=== PATIENT | male | born 1960 | race Caucasian/White ===

== ENCOUNTER 2018-02-08 15:24 | Outpatient (REF) | payer OTHER, SELFPAY ==
[2018-02-08 21:01] LABS: Abs Immature Grans 0.02 k/cumm (0.0-0.09); Absolute Basophil Count 0.02 k/cumm (0.0-0.2); Absolute Eosinophil Count 0.09 k/cumm (0.0-0.7); Absolute Lymphocyte Count 1.94 k/cumm (1.2-3.4); Absolute Monocyte Count 0.47 k/cumm (0.11-0.7); Absolute Neutrophil Count 7.21 k/cumm (1.2-6.7); Basophils % 0.2; Eosinophils % 0.9; HCT 38.2 % (40.0-50.0); HGB 12.3 g/dL (13.5-17.5); Immature Grans % 0.2; Lymphocytes % 19.9; Mean Corp. HGB Concentration 32.2 g/dL (32.0-36.0); Mean Corpuscular Hemoglobin 28.6 pg (27.0-33.0); Mean Corpuscular Volume 88.8 fL (80-95); Mean Platelet Volume 11.3 fL (8.0-11.0); Monocytes % 4.8; Platelet Count 226 x1000/uL (130-400); RBC Distribution Width 16.3 % (11.8-14.1); White Blood Cell Count 9.75 k/cumm (4.4-10.8)
[2018-02-08 21:03] LABS: ALT 43 U/L (12-78); AST 34 U/L (15-37); Albumin 3.8 g/dL (3.4-5.0); BUN 18 mg/dL (7-18); CREATININE 1.34 mg/dL (0.70-1.30); Calcium 9.2 mg/dL (8.5-10.1); Chloride 102 mmol/L (98-107); Estimated GFR 54.56 (mL/min/1.73m2); Glucose 148 mg/dL (70-100); Potassium 5.1 mmol/L (3.5-5.1); Sodium 139 mmol/L (136-145)
[2018-02-08 21:10] LABS: COMMENT (LAB VIEW ONLY) 166.85 mg/dL
[2018-02-08 22:16] LABS: Alkaline Phosphatase 121 U/L (46-116); Bilirubin, Total 0.4 mg/dL (0.2-1.0); Cholesterol 194 mg/dL (50-200); HDL Cholesterol 54 mg/dL (40-60); LDL CHOLESTEROL 123 mg/dL (<100); TSH 3.45 uIU/mL (0.358-3.74); Total Protein 7.9 g/dL (6.4-8.2); Triglyceride 127 mg/dL (30-150)
== END 2018-02-08 15:44 ==
LOC: NCHCN 15:24
PROVIDERS: PCP Internal Medicine; Visit Provider Internal Medicine
DX: E03.9 Hypothyroidism, unspecified (principal); E11.9 Type 2 diabetes mellitus without complications; I10 Essential (primary) hypertension; E66.9 Obesity, unspecified
CPT/HCPCS: 80053; 80061; 83721; 82043; 82570; 84443; 85025

== ENCOUNTER 2018-08-30 16:35 | Outpatient (REF) | payer OTHER, MEDICARE, SELFPAY ==
[2018-08-30 20:38] LABS: Abs Immature Grans 0.02 k/cumm (0.0-0.09); Absolute Basophil Count 0.02 k/cumm (0.0-0.2); Absolute Eosinophil Count 0.11 k/cumm (0.0-0.7); Absolute Lymphocyte Count 1.98 k/cumm (1.2-3.4); Absolute Monocyte Count 0.61 k/cumm (0.11-0.7); Absolute Neutrophil Count 4.28 k/cumm (1.2-6.7); Basophils % 0.3; Eosinophils % 1.6; HGB 11.4 g/dL (13.5-17.5); Immature Grans % 0.3; Lymphocytes % 28.2; Mean Corp. HGB Concentration 31.7 g/dL (32.0-36.0); Mean Corpuscular Volume 85.3 fL (80-95); Mean Platelet Volume 10.9 fL (8.0-11.0); Monocytes % 8.7; Neutrophils % 60.9; Platelet Count 236 x1000/uL (130-400); RBC 4.22 m/cumm (4.50-6.00); RBC Distribution Width 16.9 % (11.8-14.1); White Blood Cell Count 7.02 k/cumm (4.4-10.8)
[2018-08-30 21:00] LABS: ALT 48 U/L (12-78); AST 36 U/L (15-37); Albumin 3.8 g/dL (3.4-5.0); Alkaline Phosphatase 127 U/L (46-116); BUN 16 mg/dL (7-18); Bilirubin, Total 0.3 mg/dL (0.2-1.0); CREATININE 1.16 mg/dL (0.70-1.30); Calcium 9.4 mg/dL (8.5-10.1); Chloride 100 mmol/L (98-107); Glucose 110 mg/dL (70-100); Lipase 129 U/L (73-393); NT-proBNP 33 pg/mL; Potassium 4.9 mmol/L (3.5-5.1); Sodium 139 mmol/L (136-145)
== END 2018-08-30 16:55 ==
LOC: NCHCN 16:35
PROVIDERS: PCP Internal Medicine; Visit Provider Internal Medicine
DX: R07.89 Other chest pain (principal); I10 Essential (primary) hypertension; E11.49 Type 2 diabetes mellitus with other diabetic neurological complication
CPT/HCPCS: 80053; 83690; 83880; 85025

== ENCOUNTER 2018-09-05 01:05 | Outpatient (CLI) | payer OTHER, MEDICARE, SELFPAY ==
--- NOTE | 2018-09-05 11:00 | DI.RAD_ITS ---
SYMPTOM/DIAGNOSIS: R06.09, EXERTIONAL SHORTNESS OF BREATH PA AND LATERAL CHEST: The lungs are free of infiltrates. There is no pleural effusion. The cardiovascular structures appear intact. SUMMARY: No evidence of acute cardiopulmonary disease,
== END 2018-09-05 01:25 ==
PROVIDERS: PCP Internal Medicine; Visit Provider Internal Medicine
DX: R06.09 Other forms of dyspnea (principal)
CPT/HCPCS: 71046

== ENCOUNTER 2018-11-11 02:12 | Outpatient (CLI) | payer OTHER, MEDICARE, SELFPAY ==
--- NOTE | 2018-11-11 | PFT_ITS ---
PULMONARY FUNCTION TEST REPORT Patient - Melo Waller DATE OF SERVICE November 11, 2018 REQUESTING PROVIDER Nella Goel M.D. INTERPRETATION OF STUDY Spirometry shows no evidence of obstructive airways disease. No bronchodilator response. LUNG VOLUMES - Lung volumes, the patient unable to carry out plethysmography maneuver due to obesity. There was severely decreased slow vital capacity and extremely low ERV. DIFFUSION CAPACITY- Mildly reduced, which is normal when corrected to alveolar volume. AIRWAY RESISTANCE - Not measured. IMPRESSION No evidence of obstructive airways disease. There is a suggestion toward restrictive pattern, however, this cannot be confirmed without total lung capacity measurement, likely at least partially the restrictive pattern is related to chest wall restriction from morbidity obesity. Clinical correlation recommended. Marichuy French M.D. ANDREA/ T- 11/18/2018
[2018-11-11] MEDS: Inhaler, Assist Device 1 EACH MC (14:26)
[2018-11-11] MEDS: Albuterol HFA 18 GM 200 PUFF INH IH (14:27)
== END 2018-11-11 02:32 ==
PROVIDERS: PCP Internal Medicine; Visit Provider Internal Medicine
DX: R06.02 Shortness of breath (principal); Z87.891 Personal history of nicotine dependence; Z77.090 Contact with and (suspected) exposure to asbestos
CPT/HCPCS: 94060; 94729

== ENCOUNTER 2019-02-27 15:37 | Outpatient (REF) | payer OTHER, MEDICARE, SELFPAY ==
[2019-02-27 22:25] LABS: Abs Immature Grans 0.04 k/cumm (0.0-0.09); Absolute Basophil Count 0.01 k/cumm (0.0-0.2); Absolute Eosinophil Count 0.19 k/cumm (0.0-0.7); Absolute Lymphocyte Count 1.42 k/cumm (1.2-3.4); Absolute Monocyte Count 0.56 k/cumm (0.11-0.7); Basophils % 0.1; Eosinophils % 2.3; HCT 33.6 % (40.0-50.0); HGB 11.2 g/dL (13.5-17.5); Immature Grans % 0.5; Lymphocytes % 17.1; Mean Corp. HGB Concentration 33.3 g/dL (32.0-36.0); Mean Corpuscular Hemoglobin 28.3 pg (27.0-33.0); Mean Corpuscular Volume 84.8 fL (80-95); Monocytes % 6.7; Neutrophils % 73.3; Platelet Count 300 x1000/uL (130-400); RBC 3.96 m/cumm (4.50-6.00); RBC Distribution Width 17.2 % (11.8-14.1); White Blood Cell Count 8.32 k/cumm (4.4-10.8)
[2019-02-27 22:39] LABS: ALT 71 U/L (16-63); AST 65 U/L (15-37); Albumin 3.5 g/dL (3.4-5.0); Alkaline Phosphatase 112 U/L (46-116); Anion Gap 9.2 mmol/L (3-11); BUN 18 mg/dL (7-18); Bilirubin, Total 0.3 mg/dL (0.2-1.0); CO2 25.8 mmol/L (21.0-32.0); CREATININE 1.03 mg/dL (0.70-1.30); Calcium 8.8 mg/dL (8.5-10.1); Chloride 101 mmol/L (98-107); Glucose 176 mg/dL (74-106); Lipase 118 U/L (73-393); Sodium 136 mmol/L (136-145); TSH 4.72 uIU/mL (0.36-3.74); Total Protein 7.4 g/dL (6.4-8.2)
== END 2019-02-27 15:57 ==
LOC: NCHCN 15:37
PROVIDERS: PCP Internal Medicine; Visit Provider Internal Medicine
DX: E11.49 Type 2 diabetes mellitus with other diabetic neurological complication (principal); R06.09 Other forms of dyspnea; E03.9 Hypothyroidism, unspecified; E66.9 Obesity, unspecified
CPT/HCPCS: 80053; 83690; 84443; 85025

== ENCOUNTER 2019-10-20 12:57 | Outpatient (REF) | payer OTHER, MEDICARE, SELFPAY ==
[2019-10-20 22:28] LABS: Anion Gap 7.2 mmol/L (3-11); BUN 19 mg/dL (7-18); CO2 29.8 mmol/L (21.0-32.0); CREATININE 1.12 mg/dL (0.70-1.30); Calcium 9.1 mg/dL (8.5-10.1); Chloride 102 mmol/L (98-107); Glucose 249 mg/dL (74-106); Potassium 5.2 mmol/L (3.5-5.1); Sodium 139 mmol/L (136-145)
== END 2019-10-20 13:17 ==
LOC: NCHCN 12:57
PROVIDERS: PCP Internal Medicine; Visit Provider Internal Medicine
DX: R60.0 Localized edema (principal)
CPT/HCPCS: 80048

== ENCOUNTER 2019-11-20 14:30 | Outpatient (REF) | payer OTHER, MEDICARE, SELFPAY ==
[2019-11-20 14:40] LABS: Anion Gap 4.4 mmol/L (3-11); BUN 25 mg/dL (7-18); CO2 29.6 mmol/L (21.0-32.0); CREATININE 1.17 mg/dL (0.70-1.30); Calcium 8.7 mg/dL (8.5-10.1); Chloride 106 mmol/L (98-107); Glucose 141 mg/dL (74-106); Potassium 4.3 mmol/L (3.5-5.1); Sodium 140 mmol/L (136-145); TSH 6.13 uIU/mL (0.36-3.74)
== END 2019-11-20 14:50 ==
LOC: NCHCN 14:30
PROVIDERS: PCP Internal Medicine; Visit Provider Internal Medicine
DX: E11.21 Type 2 diabetes mellitus with diabetic nephropathy (principal); E03.9 Hypothyroidism, unspecified
CPT/HCPCS: 80048; 84443

== ENCOUNTER 2020-01-26 20:20 | Outpatient (REF) | payer OTHER, MEDICARE, SELFPAY ==
[2020-01-26 21:46] LABS: Abs Immature Grans 0.02 10^3/uL (0.0-0.06); Absolute Basophil Count 0.02 10^3/uL (0.0-0.2); Absolute Eosinophil Count 0.11 10^3/uL (0.0-0.7); Absolute Lymphocyte Count 2.14 10^3/uL (1.2-3.4); Absolute Monocyte Count 0.59 10^3/uL (0.1-0.8); Absolute Neutrophil Count 4.02 10^3/uL (1.2-6.7); Basophils % 0.3; Eosinophils % 1.6; HCT 32.8 % (40.0-50.0); HGB 10.6 g/dL (13.5-17.5); Immature Grans % 0.3; MCH 28.8 pg (27.0-33.0); MCHC 32.3 % (32.0-36.0); MCV 89.1 fL (80-95); MPV 12.4 fL (8.0-11.0); Monocytes % 8.6; Neutrophils % 58.2; Nucleated RBC 0 %; Platelet Count 188 10^3/uL (130-400); RBC 3.68 10^6/uL (4.36-5.78); RDW 15.9 % (11.8-14.1)
[2020-01-26 22:21] LABS: Iron 75 ug/dL (65-175); Total Iron Binding Capacity 347 ug/dL (250-450); Transferrin Sat 22 % (20-55)
[2020-01-26 22:24] LABS: Hemoglobin A1C 7.1 % (<5.7)
[2020-01-26 22:45] LABS: TSH 4.55 uIU/mL (0.36-3.74); Vitamin B12 898 pg/mL (193-986)
[2020-01-27 10:56] LABS: Ferritin 22 ng/mL (26-388)
== END 2020-01-26 20:40 ==
LOC: NCHCN 20:20
PROVIDERS: PCP Internal Medicine; Visit Provider Internal Medicine
DX: D64.9 Anemia, unspecified (principal); E11.49 Type 2 diabetes mellitus with other diabetic neurological complication
CPT/HCPCS: 82607; 82728; 83036; 83540; 83550; 84443; 85025

== ENCOUNTER 2020-04-12 16:37 | Outpatient (REF) | payer OTHER, MEDICARE, SELFPAY ==
[2020-04-13 13:29] LABS: COVID-19 RT-PCR UVMMC Result Negative (Negative)
== END 2020-04-12 16:57 ==
LOC: LBN 16:37
PROVIDERS: PCP Internal Medicine; Visit Provider Internal Medicine
DX: Z20.822 Contact with and (suspected) exposure to COVID-19 (principal)
CPT/HCPCS: U0003

== ENCOUNTER 2020-04-20 15:28 | Outpatient (REF) | payer OTHER, MEDICARE, SELFPAY ==
[2020-04-20 21:48] LABS: Abs Immature Grans 0.03 10^3/uL (0.0-0.06); Absolute Basophil Count 0.02 10^3/uL (0.0-0.2); Absolute Eosinophil Count 0.07 10^3/uL (0.0-0.7); Absolute Lymphocyte Count 1.64 10^3/uL (1.2-3.4); Absolute Monocyte Count 0.55 10^3/uL (0.1-0.8); Absolute Neutrophil Count 6.61 10^3/uL (1.2-6.7); Basophils % 0.2; Eosinophils % 0.8; HCT 39.1 % (40.0-50.0); HGB 12.9 g/dL (13.5-17.5); Immature Grans % 0.3; Lymphocytes % 18.4; MCH 29.4 pg (27.0-33.0); MCV 89.1 fL (80-95); MPV 12.5 fL (8.0-11.0); Monocytes % 6.2; Neutrophils % 74.1; Nucleated RBC 0 %; Platelet Count 183 10^3/uL (130-400); RBC 4.39 10^6/uL (4.36-5.78); RDW-SD 49.6 fL; WBC 8.92 10^3/uL (4.4-10.8)
[2020-04-20 22:51] LABS: ALT 67 U/L (16-63); AST 53 U/L (15-37); Alkaline Phosphatase 121 U/L (46-116); Anion Gap 7.6 mmol/L (3-11); BUN 41 mg/dL (7-18); Bilirubin, Total 0.4 mg/dL (0.2-1.0); CO2 25.4 mmol/L (21.0-32.0); CREATININE 1.68 mg/dL (0.70-1.30); Calcium 9.7 mg/dL (8.5-10.1); Chloride 99 mmol/L (98-107); Estimated GFR 41.75 (mL/min/1.73m2); Glucose 178 mg/dL (74-106); Sodium 132 mmol/L (136-145); TSH 2.64 uIU/mL (0.36-3.74); Total Protein 8.1 g/dL (6.4-8.2)
[2020-04-20 22:52] LABS: Ferritin 64 ng/mL (26-388)
[2020-04-20 23:02] LABS: Potassium 6.1 mmol/L (3.5-5.1)
== END 2020-04-20 15:48 ==
LOC: NCHCN 15:28
PROVIDERS: PCP Internal Medicine; Visit Provider Nurse Practitioner Family
DX: K76.0 Fatty (change of) liver, not elsewhere classified (principal); E11.49 Type 2 diabetes mellitus with other diabetic neurological complication; K21.9 Gastro-esophageal reflux disease without esophagitis; I10 Essential (primary) hypertension
CPT/HCPCS: 80053; 82728; 84443; 85025

== ENCOUNTER 2020-04-26 11:40 | Outpatient (REF) | payer OTHER, MEDICARE, SELFPAY ==
--- OUTSIDE RECORDS SUMMARY | 2020-04-26 11:45 | XMS_ITS ---
:1960 Author Care Team Providers Name Role Phone Unavailable Primary Care Provider Unavailable Allergies Code Code System Name Reaction Severity Status Onset Bee Venom Protein ? ? Active ? (Honey Bee) 7531 RxNorm Nortriptyline ? ? Active ? Medications Name Status Start Date Stop Date ? ? ammonium lactate 12 %-12 % topical kit Active ? Not available Apply 1 kit twice a day by topical route as needed. amoxicillin 500 mg tablet Completed ? 2019 aspirin 81 mg tablet,delayed release Active ? Not available Take 1 tablet every day by oral route. BD Insulin Syringe Ultra-Fine 0.5 mL 31 Active ? Not available gauge x 5/16 BD Insulin Syringe Ultra-Fine 1 mL 31 Active ? Not available gauge x 5/16 Carafate 100 mg/mL oral suspension Active ? Not available cephalexin 500 mg capsule Active ? Not av ailable Cymbalta 20 mg capsule,delayed release Active ? Not available Take 30 mg twice a day by oral route. Stylesight G6 Sensor device Active ? Not avai lable diltiazem CD 180 mg capsule,extended Active ? Not available release 24 hr duloxetine 30 mg capsule,delayed Active ? Not available release duloxetine 60 mg capsule,delayed Active ? Not available release epinephrine 0.3 mg/0.3 mL injection, Active ? Not available auto-injector EpiPen 2-Gilberto Active ? Not available PRN esomeprazole magnesium 40 mg Active ? Not available capsule,delayed release ezetimibe 10 mg tablet Active ? Not avail able famotidine 40 mg tablet Active ? Not avai lable fluconazole 100 mg tablet Active ? Not av ailable fluconazole 150 mg tablet Active ? Not av ailable fluoxetine 10 mg capsule Active ? Not uri ilable furosemide 20 mg tablet Active ? Not avai lable gabapentin 300 mg capsule Active ? Not av ailable Humalog U-100 Insulin Active ? Not availa ble 35 in AM, 35 in PM Humalog U-100 Insulin 100 unit/mL Active ? Not available subcutaneous solution Lantus U-100 Insulin 100 unit/mL Active ? Not available subcutaneous solution Levemir U-100 Insulin Completed ? 09/05/2018 80 units BID levothyroxine 125 mcg tablet Active ? Not available levothyroxine 25 mcg tablet Active ? Not available levothyroxine 88 mcg tablet Active ? Not available lisinopril 40 mg tablet Active ? Not avai lable metformin 1,000 mg tablet Active ? Not av ailable metoclopramide 10 mg tablet Active ? Not available metoclopramide HCl Active ? Not available 10 mg QID miconazole nitrate (bulk) powder Active ? Not available Take 1 g 3 times a day by miscell. route. Narcan 4 mg/actuation nasal spray Active ? Not available Take 1 spray as needed by nasal route as needed. Nystop 100,000 unit/gram topical powder Active ? Not available ProAir HFA Completed ? 12/12/2019 2 puffs Q4-6hrs ranitidine 150 mg tablet Active ? Not uri ilable Take 2 tablets every day by oral route at bedtime. rosuvastatin 10 mg tablet Active ? Not av ailable Serevent Diskus 50 mcg/dose powder for inhalation Active ? Not available Inhale 1 puff twice a day by inhalation route. Stiolto Respimat 2.5 mcg-2.5 Completed ? mcg/actuation solution for inhalation terazosin 5 mg capsule Active ? Not avail able tolterodine 1 mg tablet Active ? Not avai lable tramadol 50 mg tablet Active ? Not availa ble triamcinolone acetonide 0.5 % topical cream Active ? Not available APPLY A THIN LAYER TO THE AFFECTED AREA(S) BY TOPICAL ROUTE 2 T IMES PER DAY Ventolin HFA 90 mcg/actuation aerosol Active ? Not available inhaler Xtampza ER 27 mg capsule sprinkle Active ? Not available Problems Name Status Onset Date Source ? Polyp of Colon Active 04/30/2018 ? Hypothyroidism Active 04/30/2018 ? Type 2 Diabetes Mellitus Active 04/30/2018 ? Obesity Active 04/30/2018 ? Tobacco User Active 04/30/2018 ? Parkinsonism Active 04/30/2018 ? Chronic Pain Active 04/30/2018 ? Hypertensive Disorder Active 04/30/2018 ? Peripheral Venous Insufficiency Active 04/30/2018 ? Gastroesophageal Reflux Disease Active 04/30/2018 ? Gastroparesis Syndrome Active 04/30/2018 ? Chronic Constipation Active 04/30/2018 ? Osteoarthritis Active 04/30/2018 ? Shoulder Pain Active 04/30/2018 ? Edema Active 04/30/2018 ? Family History of Prostate Cancer Active 04/30/2018 ? Restless Legs Active 05/09/2018 ? Sleep Paralysis Active 05/09/2018 ? Cramp in Lower Leg Associated with Rest Active 05/09/19 19 ? Dyspnea on Exertion Active 07/08/2019 ? Obstructive Sleep Apnea Syndrome Active ? ? Procedures Date Name Performed by ? 03/11/2019 US, Echocardiogram, Transthoracic, [facility] Complete, W/ Color Flow [address], [place] [address] ([place] [address]) 07/08/2019 LDCT, Chest, for Lung Cancer [facility] - Radiology Screening [address] [place], [place] [address] (Work [address]) 12/12/2019 LDCT, Chest, for Lung Cancer [facility] - Radiology Screening [address], [place] [address] (Work Place) Results Lab Results None recorded. Past Encounters 12/12/2019 Obstructive Sleep Apnea Syndrome; Dyspne a on Exertion; Ex-smoker Marichuy French MD: [address] [place] [address] Dr devora Panchal [address] [place] [phone], Ph. 07/08/2019 Obstructive Sleep Apnea Syndrome; Dyspne a on Exertion; Ex-smoker Marichuy French MD: [address] [place] [address] Dr devora Panchal [address] [place] [phone], Ph. 03/11/2019 Dyspnea on Exertion; Obstructive Sleep A pnea Syndrome Marichuy French MD: [address] [place] [address] Dr devora Panchal [address] [place] [phone], Ph. 11/21/2018 Obstructive Sleep Apnea Syndrome Felicia Salazar NP: [address] [place] [phone], Ph. Social History Tobacco Smoking Status Former Smoker Notes: quit 10 + years ago, 1-1.5ppd, started age 15 Vaccine List Vaccine Type influenza, injectable, quadrivalent 02/04/2019 pneumococcal polysaccharide PPV23 12/17/2002 12/30/2015 Tdap 04/29/2008 Plan of Care Reminders Provider Appointments None ? ? recorded. Lab None ? ? recorded. Referral None ? ? recorded. Procedures None ? ? recorded. Surgeries None ? ? recorded. Imaging None ? ? recorded. Vitals 12/12/2019 02:00PM Office 15 Height Weight BMI Blood Pressure 190.5 cm 191 kg 52.6 kg/m2 128/70 mm[Hg] 07/08/2019 08:30AM Office 30 Height 190.5 cm 03/11/2019 11:00AM New Patient 45 Height Weight BMI Blood Pressure 190.5 cm 189 kg 52.1 kg/m2 122/72 mm[Hg] 11/21/2018 01:15PM Office 30 Height Weight BMI Blood Pressure 190.5 cm 194.23 kg 53.5 kg/m2 158/80 mm[Hg] 09/05/2018 10:45AM Office 30 Height Weight BMI Blood Pressure 190.5 cm 191.42 kg 52.7 kg/m2 128/74 mm[Hg] 05/09/2018 01:00PM New Patient 45 Height Weight BMI Blood Pressure 190.5 cm 190.51 kg 52.5 kg/m2 138/82 mm[Hg]
[2020-04-26 12:37] LABS: Anion Gap 9.7 mmol/L (3-11); BUN 33 mg/dL (7-18); CO2 24.3 mmol/L (21.0-32.0); CREATININE 1.4 mg/dL (0.70-1.30); Calcium 9.6 mg/dL (8.5-10.1); Chloride 104 mmol/L (98-107); Estimated GFR 51.52 (mL/min/1.73m2); Glucose 131 mg/dL (74-106); Sodium 138 mmol/L (136-145)
== END 2020-04-26 12:00 ==
LOC: NCHCN 11:40
PROVIDERS: PCP Internal Medicine; Visit Provider Internal Medicine
DX: E11.622 Type 2 diabetes mellitus with other skin ulcer (principal); I87.312 Chronic venous hypertension (idiopathic) with ulcer of left lower extremity
CPT/HCPCS: 80048

== ENCOUNTER 2020-05-10 20:35 | Outpatient (REF) | payer OTHER, MEDICARE, SELFPAY ==
[2020-05-10 21:18] LABS: Anion Gap 11.9 mmol/L (3-11); BUN 19 mg/dL (7-18); CO2 24.1 mmol/L (21.0-32.0); CREATININE 1.2 mg/dL (0.70-1.30); Calcium 8.9 mg/dL (8.5-10.1); Chloride 101 mmol/L (98-107); Glucose 146 mg/dL (74-106); Potassium 4.5 mmol/L (3.5-5.1); Sodium 137 mmol/L (136-145)
[2020-05-12 13:26] LABS: COVID-19 RT-PCR UVMMC Result Negative (Negative)
== END 2020-05-10 20:36 | disposition home or self-care (01) ==
LOC: NCHCN 20:35
PROVIDERS: PCP Internal Medicine; Visit Provider Internal Medicine
DX: I10 Essential (primary) hypertension (principal); I87.312 Chronic venous hypertension (idiopathic) with ulcer of left lower extremity; Z20.828 Contact with and (suspected) exposure to other viral communicable diseases
CPT/HCPCS: 80048; U0003

== ENCOUNTER 2020-05-17 21:37 | Outpatient (REF) | payer OTHER, MEDICARE, SELFPAY ==
[2020-05-18 18:06] LABS: PSA, Screening 0.5 ng/mL (0.0-4.5)
== END 2020-05-17 21:38 | disposition home or self-care (01) ==
LOC: LBN 21:37
PROVIDERS: PCP Internal Medicine; Visit Provider Urology
DX: Z12.5 Encounter for screening for malignant neoplasm of prostate (principal)
CPT/HCPCS: 84153

== ENCOUNTER 2020-06-07 20:38 | Outpatient (REF) | payer OTHER, MEDICARE, SELFPAY ==
[2020-06-07 21:25] LABS: Anion Gap 11.4 mmol/L (3-11); BUN 33 mg/dL (7-18); CO2 24.6 mmol/L (21.0-32.0); CREATININE 1.2 mg/dL (0.70-1.30); Calcium 9.1 mg/dL (8.5-10.1); Calculated LDL 39 mg/dL (<100); Chloride 100 mmol/L (98-107); Cholesterol 133 mg/dL (<200); Glucose 134 mg/dL (74-106); HDL Cholesterol 83 mg/dL (40-60); Potassium 5.1 mmol/L (3.5-5.1); Sodium 136 mmol/L (136-145); Triglyceride 57 mg/dL (<150)
== END 2020-06-07 20:39 | disposition home or self-care (01) ==
LOC: LBN 20:38
PROVIDERS: PCP Internal Medicine; Visit Provider Internal Medicine
DX: I10 Essential (primary) hypertension (principal); I87.312 Chronic venous hypertension (idiopathic) with ulcer of left lower extremity; N17.9 Acute kidney failure, unspecified
CPT/HCPCS: 80048; 80061

== ENCOUNTER 2020-06-15 22:05 | Outpatient (REF) | payer OTHER, MEDICARE, SELFPAY ==
[2020-06-17 14:23] LABS: COVID-19 RT-PCR UVMMC Result Negative (Negative)
== END 2020-06-15 22:06 | disposition home or self-care (01) ==
LOC: LBN 22:05
PROVIDERS: PCP Internal Medicine; Visit Provider Anesthesiology Pain Medicine
DX: Z20.828 Contact with and (suspected) exposure to other viral communicable diseases (principal); Z01.818 Encounter for other preprocedural examination
CPT/HCPCS: U0003

== ENCOUNTER 2020-07-13 21:04 | Outpatient (REF) | payer OTHER, MEDICARE, SELFPAY ==
[2020-07-14 22:51] LABS: COVID-19 RT-PCR UVMMC Result Negative (Negative)
== END 2020-07-13 21:05 | disposition home or self-care (01) ==
LOC: LBN 21:04
PROVIDERS: PCP Internal Medicine; Visit Provider Anesthesiology Pain Medicine
DX: Z20.822 Contact with and (suspected) exposure to COVID-19 (principal); Z01.818 Encounter for other preprocedural examination
CPT/HCPCS: 87635; U0003; U0005

== ENCOUNTER 2020-07-27 13:15 | Outpatient (REF) | payer OTHER, MEDICARE, SELFPAY ==
[2020-07-28 15:16] LABS: COVID-19 RT-PCR UVMMC Result Negative (Negative)
== END 2020-07-27 13:16 | disposition home or self-care (01) ==
LOC: NCHCN 13:15
PROVIDERS: PCP Internal Medicine; Visit Provider Nurse Practitioner Family
DX: Z20.822 Contact with and (suspected) exposure to COVID-19 (principal); J02.9 Acute pharyngitis, unspecified
CPT/HCPCS: U0003

== ENCOUNTER 2020-09-23 16:36 | Outpatient (REF) | payer OTHER, MEDICARE, SELFPAY ==
[2020-09-23 21:00] LABS: Abs Immature Grans 0.05 10^3/uL (0.0-0.06); Absolute Basophil Count 0.03 10^3/uL (0.0-0.2); Absolute Eosinophil Count 0.09 10^3/uL (0.0-0.7); Absolute Lymphocyte Count 2.02 10^3/uL (1.2-3.4); Absolute Monocyte Count 0.65 10^3/uL (0.1-0.8); Absolute Neutrophil Count 8.63 10^3/uL (1.2-6.7); Basophils % 0.3; Eosinophils % 0.8; HGB 12.1 g/dL (13.5-17.5); Immature Grans % 0.4; Lymphocytes % 17.6; MCH 30.3 pg (27.0-33.0); MCHC 33.6 % (32.0-36.0); MPV 11.6 fL (8.0-11.0); Monocytes % 5.7; Neutrophils % 75.2; Nucleated RBC 0 %; Platelet Count 177 10^3/uL (130-400); RDW 14.6 % (11.8-14.1); RDW-SD 48.5 fL; WBC 11.47 10^3/uL (4.4-10.8)
[2020-09-23 21:25] LABS: ALT 34 U/L (16-63); AST 25 U/L (15-37); Albumin 3.6 g/dL (3.4-5.0); Alkaline Phosphatase 126 U/L (46-116); Anion Gap 8.8 mmol/L (3-11); BUN 27 mg/dL (7-18); Bilirubin, Total 0.4 mg/dL (0.2-1.0); CO2 25.2 mmol/L (21.0-32.0); CREATININE 1.3 mg/dL (0.70-1.30); Calcium 9.1 mg/dL (8.5-10.1); Chloride 99 mmol/L (98-107); Estimated GFR 56.12 (mL/min/1.73m2); Glucose 172 mg/dL (74-106); Potassium 4.7 mmol/L (3.5-5.1); Sodium 133 mmol/L (136-145); TSH 1.89 uIU/mL (0.36-3.74); Total Protein 7.2 g/dL (6.4-8.2)
== END 2020-09-23 16:37 | disposition home or self-care (01) ==
LOC: NCHCN 16:36
PROVIDERS: PCP Internal Medicine; Visit Provider Internal Medicine
DX: E03.9 Hypothyroidism, unspecified (principal); I10 Essential (primary) hypertension
CPT/HCPCS: 80053; 84443; 85025

== ENCOUNTER 2020-10-25 20:23 | Outpatient (REF) | payer OTHER, MEDICARE, SELFPAY ==
[2020-10-25 21:11] LABS: Hemoglobin A1C 6.7 % (<5.7)
== END 2020-10-25 20:24 | disposition home or self-care (01) ==
LOC: LBN 20:23
PROVIDERS: PCP Internal Medicine; Visit Provider Internal Medicine
DX: E11.21 Type 2 diabetes mellitus with diabetic nephropathy (principal)
CPT/HCPCS: 83036

== ENCOUNTER 2021-02-10 17:07 | Outpatient (REF) | payer OTHER, MEDICARE, SELFPAY ==
[2021-02-10 22:35] LABS: COMMENT (LAB VIEW ONLY) 43.43 mg/dL; Microalb ug/mg Crea 11.7 ug/mg Cr
== END 2021-02-10 17:08 | disposition home or self-care (01) ==
LOC: NCHCN 17:07
PROVIDERS: PCP Internal Medicine; Visit Provider Nurse Practitioner Family
DX: E11.49 Type 2 diabetes mellitus with other diabetic neurological complication (principal)
CPT/HCPCS: 82043; 82570

== ENCOUNTER 2021-06-02 20:46 | Outpatient (REF) | payer OTHER, MEDICARE, SELFPAY ==
[2021-06-02 20:40] LABS: HCT 38.9 % (40.0-50.0); MCH 29.3 pg (27.0-33.0); MCHC 33.4 % (32.0-36.0); MCV 87.8 fL (80-95); MPV 11.8 fL (8.0-11.0); Platelet Count 199 10^3/uL (130-400); RBC 4.43 10^6/uL (4.36-5.78); RDW 14.6 % (11.8-14.1); RDW-SD 46.5 fL; WBC 9.85 10^3/uL (4.4-10.8)
[2021-06-02 21:10] LABS: ALT 35 U/L (16-63); AST 28 U/L (15-37); Albumin 3.7 g/dL (3.4-5.0); Alkaline Phosphatase 135 U/L (46-116); Anion Gap 10.8 mmol/L (3-11); BUN 17 mg/dL (7-18); Bilirubin, Total 0.4 mg/dL (0.2-1.0); CO2 27.2 mmol/L (21.0-32.0); Chloride 103 mmol/L (98-107); Glucose 113 mg/dL (74-106); Potassium 4.3 mmol/L (3.5-5.1); Sodium 141 mmol/L (136-145); Total Protein 7.3 g/dL (6.4-8.2)
== END 2021-06-02 20:47 | disposition home or self-care (01) ==
LOC: LBN 20:46
PROVIDERS: PCP Internal Medicine; Visit Provider Nurse Practitioner Family
DX: E11.49 Type 2 diabetes mellitus with other diabetic neurological complication (principal); K76.0 Fatty (change of) liver, not elsewhere classified; F32.9 Major depressive disorder, single episode, unspecified; R27.9 Unspecified lack of coordination
CPT/HCPCS: 80053; 85027

== ENCOUNTER 2021-08-01 07:54 | Outpatient (REF) | payer OTHER, MEDICARE, SELFPAY ==
[2021-08-05 15:37] LABS: Testosterone, Free 2.58 ng/dL (3.67-13.9); Testosterone, Total 129 ng/dL (240-950)
== END 2021-08-01 07:55 | disposition home or self-care (01) ==
LOC: NCHCN 07:54
PROVIDERS: PCP Internal Medicine; Visit Provider Internal Medicine
DX: N52.9 Male erectile dysfunction, unspecified (principal)
CPT/HCPCS: 84402; 84403

== ENCOUNTER 2022-02-17 15:37 | Outpatient (REF) | payer OTHER, MEDICARE, SELFPAY ==
[2022-02-17 21:12] LABS: TSH 0.08 uIU/mL (0.36-3.74)
== END 2022-02-17 15:38 | disposition home or self-care (01) ==
LOC: NCHCN 15:37
PROVIDERS: PCP Internal Medicine; Visit Provider Internal Medicine
DX: E03.9 Hypothyroidism, unspecified (principal)
CPT/HCPCS: 84443

== ENCOUNTER 2022-03-15 14:58 | Outpatient (REF) | payer OTHER, MEDICARE, SELFPAY ==
[2022-03-15 15:21] LABS: COMMENT (LAB VIEW ONLY) 154.79 mg/dL; Microalb ug/mg Crea 4.7 ug/mg Cr
== END 2022-03-15 14:59 | disposition home or self-care (01) ==
LOC: NCHCN 14:58
PROVIDERS: PCP Internal Medicine; Visit Provider Internal Medicine
DX: E11.49 Type 2 diabetes mellitus with other diabetic neurological complication (principal)
CPT/HCPCS: 82043; 82570

== ENCOUNTER 2022-05-17 16:11 | Outpatient (REF) | payer OTHER, MEDICARE, SELFPAY ==
[2022-05-17 17:36] LABS: TSH 0.12 uIU/mL (0.36-3.74)
== END 2022-05-17 16:12 | disposition home or self-care (01) ==
LOC: NCHCN 16:11
PROVIDERS: PCP Internal Medicine; Visit Provider Internal Medicine
DX: E03.9 Hypothyroidism, unspecified (principal)
CPT/HCPCS: 84443